=== PATIENT | female | born 1950 | race Caucasian/White ===

== ENCOUNTER 2017-12-29 09:04 | Emergency (ER) | payer MEDICARE ==
[~2017-12-29] VITALS: Ht 149.9 cm; Wt 98.6 kg
[~2017-12-29 09:04] MED LIST: ADVAIR 500/501 DISK INH; ALLEGRA180 MG PO; ALVESCO6.1 GM INH; COZAAR50 MG PO; DUONEB 2.5-0.5 M3 ML UPD; LEVOTHROID88 MCG PO; NAPROSYN500 MG PO; OS-CAL 500+D TA1 TAB PO; PEPCID20 MG PO; PHENERGAN25 M1 PO; PROTONIX40 MG PO; SINGULAIR10 MG PO; ZOFRAN4 MG PO
[2017-12-29 09:07] VITALS: Ht 149.9 cm; Wt 98.6 kg
[2017-12-29] MEDS ORDERED: NORCO 7.5/325 T1 TA1 PO (09:53)
[2017-12-29 10:30] LABS: APPEARANCE SL CLDY (CLEAR); BILIRUBIN NEGATIVE (NEGATIVE); COLOR YELLOW (YELLOW); GLUCOSE NEGATIVE (NEGATIVE); KETONE NEGATIVE (NEGATIVE); NITRITE NEGATIVE (NEGATIVE); PROTEIN NEGATIVE (NEGATIVE); UROBILINOGEN NORMAL (NORMAL)
[2017-12-29 10:31] LABS: BACTERIA FEW /hpf (NONE SEEN); EPITHELIAL CELLS 0-5 /hpf (0-5); MUCUS <1+ /lpf (NONE SEEN); RED CELLS - URINE OCC /hpf (0-5)
[2017-12-29 11:27] LABS: CREATINE KINASE 19 UL (21-215); PRO BNP 406 pg/mL (0-125); TROPONIN-I < 0.017 ng/mL (0.000-0.060)
[2017-12-29 17:35] VITALS: BP 119/62
== END 2017-12-29 17:29 ==
LOC: D.ER 09:04
PROVIDERS: Emergency Medicine
DX: J96.11 Chronic respiratory failure with hypoxia (principal); M54.6 Pain in thoracic spine